=== PATIENT | male | born 1980 | race Asian ===

== ENCOUNTER 2020-05-05 17:41 | Emergency (ER) | payer OTHER ==
[~2020-05-05] VITALS: Ht 182.9 cm; Wt 88.6 kg
[2020-05-05 19:20] VITALS: BP 152/68
[2020-05-05] MEDS ORDERED: HYDROcodone/APAP 5/325MG 1 TAB TABLET PO ONE (20:15)
[2020-05-05] MEDS ORDERED: DIPH,PERTUSS(ACELL),TET VAC/PF 0.5 ML SYRINGE. VAX IM ONE (20:15)
--- NOTE | 2020-05-05 20:35 | RAD ---
EXAM: PA, oblique and lateral views of the left hand DATE: 05/05/2020 7:55 PM INDICATION: Reason: laceration, table flute grinder accident / Spl. Instructions: / History: COMPARISON: No Prior FINDINGS/ IMPRESSION: Comminuted fractures seen at the distal aspect of the middle phalanx left index finger extending into the DIP joint. The principal fragment is displaced approximately 3-4 mm and mildly rotated. Radiopaque density at the palmar aspect of the DIP joint likely bony fragments although retained foreign bodies on excluded. Electronically signed by: Adelfo Fernandez MD (05/05/2020 8:32 PM) MARCIO
--- NOTE | 2020-05-05 21:25 | PHYS DOC ---
Past Medical History Past Medical History: No Pertinent History Past Surgical History: No Surgical History Smoking Status: Never Smoker Alcohol Use: None General Adult EDM: Chief Complaint: LACERATION/AVULSION HPI: HPI: Patient is a 39 year old male who presents with who was using a table abrasive grinder this evening and got his left index finger docking the abrasive grinder. He has a large circumferential laceration that wraps around the finger and does go into the nailbed. Bleeding is controlled. The finger is deformed. Patient cannot bend the finger at the DIP joint. He denies numbness or tingling. 2+ swelling. Patient rates his pain 9 out of 10. Review of Systems: Review of Systems: Constitutional: Denies fever or chills. [] Eyes: Denies change in visual acuity. [] HENT: Denies nasal congestion or sore throat. [] Respiratory: Denies cough or shortness of breath. [] Cardiovascular: Denies chest pain or edema. [] GI: Denies abdominal pain, nausea, vomiting, bloody stools or diarrhea. [] : Denies dysuria. [] Musculoskeletal: Denies back pain or joint pain. [] Integument: Denies rash. [] Neurologic: Denies headache, focal weakness or sensory changes. [] Endocrine: Denies polyuria or polydipsia. [] Lymphatic: Denies swollen glands. [] Psychiatric: Denies depression or anxiety. [] Heart Score: Risk Factors: Risk Factors: DM, Current or recent (<one month) smoker, HTN, HLP, family history of CAD, obesity. Risk Scores: Score 0 - 3: 2.5% MACE over next 6 weeks - Discharge Home Score 4 - 6: 20.3% MACE over next 6 weeks - Admit for Clinical Observation Score 7 - 10: 72.7% MACE over next 6 weeks - Early Invasive Strategies Current Medications: Current Medications Medications (Trade) Dose Ordered Sig/Karlene Start Time Stop Time Status Last Admin Dose Admin Acetaminophen/ Hydrocodone Bitart (Lortab 5/325) 1 tab 1X ONCE 05/05/20 20:15 05/05/20 20:16 DC 05/05/20 20:31 1 TAB Diphtheria/ Tetanus/Acell Pertussis (ADACEL TDap SYRINGE) 0.5 ml ONCE ONCE 05/05/20 20:15 05/05/20 20:16 DC 05/05/20 20:35 0.5 ML Allergies: Allergies: Allergies Coded Allergies Type Severity Reaction Last Updated Verified No Known Drug Allergies 05/05/20 No Physical Exam: PE: Constitutional: Well developed, well nourished, no acute distress, non-toxic appearance. [] HENT: Normocephalic, atraumatic, bilateral external ears normal, oropharynx moist, no oral exudates, nose normal. [] Eyes: PERRLA, EOMI, conjunctiva normal, no discharge. [] Neck: Normal range of motion, no tenderness, supple, no stridor. [] Cardiovascular:Heart rate regular rhythm, no murmur [] Lungs & Thorax: Bilateral breath sounds clear to auscultation [] Abdomen: Bowel sounds normal, soft, no tenderness, no masses, no pulsatile masses. [] Skin: Warm, dry, no erythema, no rash. Laceration into DIP and nail bed. [] Back: No tenderness, no CVA tenderness. [] Extremities: Left index finger tenderness and deformity, no cyanosis, no clubbing, ROM at DIP not intact, 2+edema. [] Neurologic: Alert and oriented X 3, normal motor function, normal sensory function, no focal deficits noted. [] Psychologic: Affect normal, judgement normal, mood normal. [] Current Patient Data: Vital Signs: Vital Signs Date Time Temp Pulse Resp B/P (MAP) Pulse Ox O2 Delivery O2 Flow Rate FiO2 05/05/20 20:31 20 96 Room Air 05/05/20 19:20 97.9 74 152/68 (96) 97.9 EKG: EKG: [] Radiology/Procedures: Radiology/Procedures: [] Impression: [facility] [address] [place] [address] IMAGING REPORT Signed PATIENT: MARYANN MOE ACCOUNT: [id number] : 1980 LOCATION: ER AGE: 39 SEX: M EXAM STATUS: REG ER ORD. PHYSICIAN: JEANNIE VELA APRN REASON: laceration, table abrasive grinder accident PROCEDURE: HAND LEFT 3V EXAM: PA, oblique and lateral views of the left hand DATE: 05/05/2020 7:55 PM INDICATION: Reason: laceration, table abrasive grinder accident / Spl. Instructions: / History: COMPARISON: No Prior FINDINGS/ IMPRESSION: Comminuted fractures seen at the distal aspect of the middle phalanx left index finger extending into the DIP joint. The principal fragment is displaced approximately 3-4 mm and mildly rotated. Radiopaque density at the palmar aspect of the DIP joint likely bony fragments although retained foreign bodies on excluded. Electronically signed by: Adelfo Brennan MD (05/05/2020 8:32 PM) [facility] DICTATED and SIGNED BY: ADELFO BRENNAN MD DATE: 05/05/202031 Course & Med Decision Making: Course & Med Decision Making Pertinent Labs and Imaging studies reviewed. (See chart for details) See HPI. Patient is given tetanus IM and Rocephin 1 g IM. Finger is dressed and he is being transferred to [facility] emergency room and was accepted by Dr Jeremiah Singh. Patient's radiology images are sent to [facility] by clot. Skin is pink warm and dry. Radial Pulse strong and present. Patient wants to go by ambulance. Wound is cleaned with saline and dressed. FINDINGS/ IMPRESSION: Comminuted fractures seen at the distal aspect of the middle phalanx left index finger extending into the DIP joint. The principal fragment is displaced approximately 3-4 mm and mildly rotated. Radiopaque density at the palmar aspect of the DIP joint likely bony fragments although retained foreign bodies on excluded. [] Dragon Disclaimer: Dragon Disclaimer: This electronic medical record was generated, in whole or in part, using a voice recognition dictation system. Departure Departure Impression: Primary Impression: Comminuted fracture of bone Additional Impression: Laceration Disposition: 05 TRANSFER OTHER Condition: STABLE Referrals: NO PCP (PCP) Justicifation of Admission Dx: Justifications for Admission: Justification of Admission Dx: N/A JEANNIE VELA APRN May 05, 2020 21:25
[2020-05-05] MEDS ORDERED: cefTRIAXone IM 1 GM VIAL IM ONE (22:15)
== END 2020-05-05 23:00 | disposition short-term general hospital (02) ==
LOC: ER 17:41
DX: S62.621A Displaced fracture of middle phalanx of left index finger, initial encounter for closed fracture (principal); W29.0XXA Contact with powered kitchen appliance, initial encounter; Y93.89 Activity, other specified; Y92.89 Other specified places as the place of occurrence of the external cause; Y99.8 Other external cause status
CPT/HCPCS: 73130; 90471; 90715; 96372; 99285; J0696

== ENCOUNTER 2021-09-06 09:34 | Emergency (ER) | payer OTHER ==
[~2021-09-06] VITALS: Ht 177.8 cm; Wt 84.1 kg
[2021-09-06 09:46] VITALS: BP 149/84
[2021-09-06] MEDS ORDERED: FLUT16SP NS (10:24)
[2021-09-06] MEDS ORDERED: GUAI600T47 PO (10:24)
--- NOTE | 2021-09-06 10:24 | PHYS DOC ---
Past Medical History Past Medical History: No Pertinent History Past Surgical History: No Surgical History Smoking Status: Never Smoker Alcohol Use: None Drug Use: None General Adult EDM: Chief Complaint: FEVER HPI: HPI: Patient is a 41 year old male who presents with fever, headache, nasal congestion. Patient reports his symptoms began 6 days ago, and he tested positive for COVID-19 2 days ago. Patient has taken Tylenol intermittently for his headache. Patient denies weakness, night sweats, sore throat, cough, shortness of breath, chest pain, palpitations, abdominal pain, NVD. Patient is a Celframe speaker. No translators were available using the ROOOMERSator phone. Patient called his niece, Anjelica, who aided in translating during history and physical exam. Review of Systems: Review of Systems: Constitutional: See HPI Eyes: Denies change in visual acuity. HENT: See HPI Respiratory: See HPI Cardiovascular: See HPI GI: See HPI : Denies dysuria or hematuria. Musculoskeletal: Denies back pain or joint pain. Integument: Denies rash or other skin lesions. Neurologic: See HPI Heart Score: C/O Chest Pain: No Allergies: Allergies: Allergies Coded Allergies Type Severity Reaction Last Updated Verified No Known Drug Allergies 05/05/20 No Physical Exam: PE: Constitutional: Well developed, well nourished, no acute distress, non-toxic appearance. HENT: Normocephalic, atraumatic, bilateral external ears normal, oropharynx moist, no oral exudates, bilateral nasal turbinates erythematous and swollen with mucus visible in nasal canals. Eyes: PERRLA, EOMI, conjunctiva normal, no discharge. Neck: Normal range of motion, no tenderness, supple, no stridor. Cardiovascular: Heart rate regular rhythm, no murmur. Lungs & Thorax: Bilateral breath sounds clear to auscultation. Abdomen: Bowel sounds normal, soft, no tenderness, no masses, no pulsatile masses. Skin: Warm, dry, no erythema, no rash. Current Patient Data: Vital Signs: Vital Signs Date Time Temp Pulse Resp B/P (MAP) Pulse Ox O2 Delivery O2 Flow Rate FiO2 09/06/21 09:46 97.7 70 16 149/84 (105) 100 Room Air 97.7 Course & Med Decision Making: Course & Med Decision Making Pertinent Labs and Imaging studies reviewed. (See chart for details) Patient has a text message on his phone with positive Covid test results. Patient was confused on whether or not the test came back positive, as a friend of his read the text and told him he did not have COVID. His family member, whom I spoke to today, informed him that the text message says that he does have COVID. He presents today with concern about his test result and his symptoms. Patient is nontoxic with stable vitals. He will be discharged home with supportive care instructions. Patient given strict return precautions. Patient and his niece understand and are agreeable to discharge plan. Dragon Disclaimer: Coveo Disclaimer: This electronic medical record was generated, in whole or in part, using a voice recognition dictation system. Departure Departure Impression: Primary Impression: COVID-19 virus infection Disposition: HOME / SELF CARE / HOMELESS Condition: STABLE Referrals: NO PCP (PCP) Patient Instructions: Sinusitis, [id number] Additional Instructions: Your treatment plan will be supportive care, treating your symptoms to improve comfort. Alternate taking acetaminophen and ibuprofen every 4 hours for headache and fever. Take mucinex (guaifenesin) every 12 hours (according to label instructions). Use flonase (fluticasone nasal spray) each morning to help with nasal congestion. At night, sleep with a cool mist humidifier by your bed to keep mucus moist and easier to expel. Return to the emergency department if your symptoms worsen or you develop new ones, especially difficulty breathing. You have been tested for or diagnosed with COVID-19. It is an infection caused by a new type of coronavirus. COVID-19 will cause cold-like or mild flu symptoms in most. It can cause more severe symptoms like problems breathing in some. There is no treatment for COVID-19. The body will clear the infection over time. Self-care will help to ease discomfort. Rest as needed. Healthy habits may help you feel better. Steps include: - Choose healthy foods including fruits and vegetables. Drink water throughout the day. - Get plenty of sleep each night. - If you smoke, try to quit. It may ease breathing. - Avoid alcohol. Keep Others Healthy The virus can spread to others. Droplets are released every time you sneeze or cough. The droplets can get into the mouth, nose, or eyes of people near you and lead to infection. To lower the chances of spreading COVID-19 to others: Stay at home until your doctor has said it is safe to leave. If you tested positive this will mean staying isolated until both of the following are true: - At least 7 days have passed since the start of illness. - You are free of fever for at least 72 hours without the use of medicine. During this time: - Avoid public areas, events, or transportation. Do not return to work or school until your doctor has said it is safe to do so. - Call ahead if you need to go to a medical center. Let them know you may have COVID-19. It will help them guide you where to go. They may also ask you to wear a facemask when you come to the office. - If you call for emergency medical services, let them know you may have COVID- 19. While at home: - Try to avoid close contact with others. Stay about 6 feet away. - If possible, spend most of your time in a separate room from others. - Use a face mask if you will be in close contact with others such as sharing a room or vehicle. - Have someone wipe down common surfaces in the home. Use household tractor operator every day on areas like doorknobs, counters, or sinks. - Cough or sneeze into a tissue. Throw the tissue away right after use. If a tissue is not available, cough or sneeze into your elbow. - Wash your hands often. Wash them after sneezing or coughing. Use soap and water and wash for at least 20 seconds. Alcohol based hand distributor cleaner can be used if soap and water is not available. - Do not prepare food for others. Avoid sharing personal items like forks, spoons, or toothbrushes. - Avoid close contact with pets while you are sick. There is no evidence of the virus passing to pets. This is a safety step until more is known about this virus. Isolation can be frustrating. Social interaction can help. Keep in touch with friends and family through phone and tech options. You can still interact with others in your home, just keep a safe distance of about 6 feet. Contact your doctor if your recovery is not going as you expect. Get emergency care if you have problems such as: - Trouble breathing - Nonstop chest pain or pressure - Changes in awareness, confusion, or problems waking - Lips or face have bluish color - Worsening of symptoms If you think you have an emergency, call for emergency medical services right away. As taken [place] [facility] Guaifenesin (MUCINEX) 600 Mg Tablet.er 1 TAB PO BID, #20 TAB 0 Refills Prov: GLORIA FLORES 09/06/21 Fluticasone Propionate (FLUTICASONE PROPIONATE NASAL SPRAY) 16 Gm [place].susp 2 SPRAY NS DAILY, #1 BOTTLE Prov: GLORIA FLORES 09/06/21 GLORIA FLORES Sep 06, 2021 10:24
== END 2021-09-06 10:35 | disposition home or self-care (01) ==
LOC: ER 09:34
DX: U07.1 COVID-19 (principal)
CPT/HCPCS: 99283